=== PATIENT | female | born 1990 | race Hispanic/Latino ===

== ENCOUNTER 2016-10-29 08:47 | Day surgery (SDC) | payer OTHER ==
[2016-09-09 13:10] VITALS: BMI 29.8
[2016-10-29] MEDS ORDERED: Lactated Ringer's 500 ML IV ONE (09:01)
[2016-10-29] MEDS ORDERED: Propofol 10 mg/ml Inj (20 ML) ONE ×2 (11:01→11:02)
[2016-10-29 11:32] VITALS: PULSE 80; TEMP 98.1
[2016-10-29 11:38] VITALS: BP 110/80; RESP 19; O2SAT 14
== END 2016-10-29 11:58 | disposition home or self-care (01) ==
LOC: H.ENDO 08:47
PROVIDERS: ATTEND Internal Medicine Gastroenterology
DX: R12 Heartburn (principal); K21.9 Gastro-esophageal reflux disease without esophagitis